=== PATIENT | male | born 1990 | race Caucasian/White ===

== ENCOUNTER 2017-02-02 11:47 | Emergency (ER) | payer OTHER ==
[~2017-02-02 11:47] MED LIST: FLEXERIL PO; MOTRIN100 MG PO; STRATTERA PO; VICODIN 5/500 T1 TAB PO
== END 2017-02-02 13:58 | disposition home or self-care (01) ==
LOC: CED 11:47 → CFTX 13:32 → CED 13:32
DX: S86.912A Strain of unspecified muscle(s) and tendon(s) at lower leg level, left leg, initial encounter (principal); V49.40XA Driver injured in collision with unspecified motor vehicles in traffic accident, initial encounter; Y92.410 Unspecified street and highway as the place of occurrence of the external cause
CPT/HCPCS: 99283